=== PATIENT | male | born 1995 | race Caucasian/White ===

== ENCOUNTER 2024-07-24 12:40 | Emergency (ER) | payer SELFPAY ==
[~2024-07-24] VITALS: Ht 175.3 cm; Wt 75.0 kg
[2024-07-24 12:47] VITALS: O2SAT 100
[2024-07-24 13:51] LABS: BASOPHILS % 0.7 % (0.0-2.0); EOSINOPHILS % 5.2 % (0.0-5.0); HEMATOCRIT. 47.4 % (42.0-52.0); HEMOGLOBIN. 16.1 g/dL (14.0-18.0); LYMPHOCYTES % 24.7 % (20.0-50.0); MEAN CORPUSCULAR HEMOGLOBIN 28.5 pg (28.0-32.0); MEAN CORPUSCULAR VOLUME 83.8 fL (80.0-94.0); MEAN PLATELET VOLUME 9.5 fl (7.4-10.4); NEUTROPHILS % 64.4 % (40.0-76.0); PLATELET 185 x1000/uL (130-400); RED BLOOD CELL COUNT 5.65 mill/uL (4.7-6.1); RED CELL DISTRIBUTION WIDTH 13.7 % (11.6-14.6)
[2024-07-24] MEDS ORDERED: LORAZEPAM 2MG/ML INJ IM ONE (14:00)
[2024-07-24 14:01] LABS: CHLORIDE 107 mEq/L (98-107); SODIUM 139 mEq/L (136-145)
[2024-07-24 14:02] LABS: CARBON DIOXIDE 23 mEq/L (21-32)
[2024-07-24 14:07] LABS: CREATININE 0.9 mg/dL (0.6-1.3); GLUCOSE 117 mg/dL (70-105)
[2024-07-24 14:08] LABS: ETHANOL BLOOD < 10 mg/dL (<10); UREA NITROGEN BLOOD 7 mg/dL (9-23)
[2024-07-24] MEDS: LORAZEPAM 2MG/ML UD SYRINGE IM NR (14:16)
[2024-07-24] MEDS: DIPHENHYDRAMINE 50MG/ML VIAL IM ONE (14:16)
[2024-07-24 14:37] LABS: TROPONIN I HIGH SENSITIVITY < 4 ng/L (3.0-53)
[2024-07-24 17:35] VITALS: BP 111/64; PULSE 60; RESP 19; TEMP 37.1; O2SAT 100
== END 2024-07-24 17:44 | disposition home or self-care (01) ==
LOC: ER 12:40
DX: R56.9 Unspecified convulsions (principal); F84.0 Autistic disorder; Z79.899 Other long term (current) drug therapy
CPT/HCPCS: 80048; 80320; 85025; 84484; 36415; 71045; 70450; 96372; 99285; J1200; J2060; Z7610 ×2; G0480